=== PATIENT | female | born 1980 | race Caucasian/White ===

== ENCOUNTER 2017-02-16 09:21 | Emergency (ER) | payer OTHER ==
[~2017-02-16] VITALS: Ht 172.7 cm; Wt 61.8 kg
[~2017-02-16 09:21] MED LIST: DOCU-131 PO
[2017-02-16 09:24] VITALS: BP 114/74
== END 2017-02-16 10:27 | disposition home or self-care (01) ==
LOC: ED 09:55
DX: K08.89 Other specified disorders of teeth and supporting structures (principal); J02.9 Acute pharyngitis, unspecified; R68.84 Jaw pain; R51 Headache; M54.2 Cervicalgia
CPT/HCPCS: 99283